=== PATIENT | male | born 1980 | race Caucasian/White ===

== ENCOUNTER 2023-09-24 20:12 | Emergency (ER) | payer OTHER ==
[2023-09-24] MEDS ORDERED: PENicillin V POTASSIUM 500 MG/TAB PO ONE (21:30)
[2023-09-24] MEDS ORDERED: traMADol HCL 50 MG/TAB PO ONE (21:30)
[2023-09-24] MEDS ORDERED: NAPROXEN 250 MG/TAB PO ONE (21:30)
== END 2023-09-24 22:22 | disposition left against medical advice (07) | DRG 951 ==
LOC: ED 20:12
DX: Z02.89 Encounter for other administrative examinations (principal); Z04.1 Encounter for examination and observation following transport accident; Z53.29 Procedure and treatment not carried out because of patient's decision for other reasons